=== PATIENT | female | born 1940 | race Caucasian/White ===

== ENCOUNTER → 2017-03-28 | Outpatient (CLI) | payer OTHER, BC ==
[2017-03-28 18:20] LABS: THYROID STIMULATING HORMONE 0.29 uIu/ml (0.300-4.500)
--- NOTE | 2017-04-07 13:34 | CODING QUERY MEDICAL NECESSITY ---
CQSUPPORTING DIAGNOSIS NEEDED A supporting diagnosis is required for the test/procedure performed on this patient in order for us to be reimbursed by the patient's insurance. Please provide a supporting diagnosis for the following test/procedure listed below next to the test name along with your signature. *If there is no additional diagnosis for this patient that would support the following test/procedure please document that below next to the test/procedure. Test(s)/Procedure(s) that require a supporting diagnosis: DIANA 03/28/17 BLOOD GLUCOSE TEST Provider Signature: Date: Thank you Ryann Garza Health Information Management Once completed, please kindly fax back to [phone] For questions please call [phone]
== END | disposition home or self-care (01) ==
LOC: C.LABMFLN 12:52
PROVIDERS: ATTEND Family Medicine
DX: F41.8 Other specified anxiety disorders (principal); E03.9 Hypothyroidism, unspecified; Z13.1 Encounter for screening for diabetes mellitus

== ENCOUNTER → 2017-05-22 | Outpatient (CLI) | payer OTHER, BC | END | disposition home or self-care (01) | LOC: C.LABMFLN 13:32 | PROVIDERS: ATTEND Family Medicine | DX: E03.9 Hypothyroidism, unspecified (principal) ==

== ENCOUNTER → 2017-07-14 | Outpatient (CLI) | payer OTHER, BC | END | disposition home or self-care (01) | LOC: C.LABMFLN 14:23 | PROVIDERS: ATTEND Family Medicine | DX: E03.9 Hypothyroidism, unspecified (principal) ==

== ENCOUNTER → 2018-01-06 | Outpatient (CLI) | payer OTHER, BC | END | disposition home or self-care (01) | LOC: C.LABMFLN 12:55 | PROVIDERS: ATTEND Family Medicine | DX: F41.8 Other specified anxiety disorders (principal); E03.9 Hypothyroidism, unspecified; Z13.220 Encounter for screening for lipoid disorders; I71.4 Abdominal aortic aneurysm, without rupture; Z13.1 Encounter for screening for diabetes mellitus; R10.13 Epigastric pain ==

== ENCOUNTER 2023-04-30 16:42 | Inpatient (IN) ==
--- NOTE | 2023-04-30 16:51 | ED Triage Note ---
Date of Service April 30, 2023 History of Present Illness This patient was briefly evaluated while in triage. An abbreviated physical exam was performed. Here with son. This patient is a 83-year-old Female who presents to the ED for evaluation of "wanting to " lately and not taking prescribed medications. Started beginning of February. First week of february stopped her regular psych rehab, [facility]utheran, and bible study. Ritalin was changed in the recent past among other meds. Son called her doctor. Physical Exam GENERAL: 83 year old female. In no acute distress. SKIN: No lesions or rashes. HEART: Regular rate and rhythm. LUNGS: Clear to auscultation. NEURO: Alert and oriented. No deficits. MUSCULOSKELETAL: No deformities to inspection of the extremities. PSYCH: Patient is pleasant and answers all questions appropriately. Initial orders for labs and / or imaging were placed and patient was placed in the waiting area until a bed is available. Please see further documentation for the full ED course.
[2023-04-30 17:35] LABS: Eosinophils # (auto) 0.14 K/uL (0.00-0.50); Eosinophils % (auto) 1.4 %; Hematocrit (blood only) 44.2 % (37.0-47.0); Hemoglobin 14.9 g/dl (12.0-16.0); Immature Granulocytes # (auto) 0.02 K/uL (0.01-0.20); Immature Granulocytes % (auto) 0.2 %; Lymphocytes # (auto) 1.49 K/uL (1.20-3.40); Lymphocytes % (auto) 15.3 %; Mean Corpuscular Hemoglobin 31.2 pg (25.0-34.0); Mean Corpuscular Hgb Conc 33.7 g/dL (32.0-36.0); Mean Corpuscular Volume 92.7 fL (80.0-100.0); Mean Platelet Volume 9.6 fL (9.4-12.4); Monocytes # (auto) 0.88 K/uL (0.11-0.59); Neutrophils # (auto) 7.12 K/uL (1.40-6.50); Neutrophils % (auto) 73.1 %; Platelet Count 352 K/uL (130-400); RDW Coefficient of Variation 11.9 % (11.5-14.5); RDW Standard Deviation 40.9 fL (36.4-46.3); Red Blood Count 4.77 M/uL (4.20-5.40); White Blood Count 9.75 K/ul (4.8-10.8)
[2023-04-30 17:54] LABS: Alanine Aminotransferase 12 U/L (7-52); Albumin Globulin Ratio 1.3 (0.9-2); Albumin Level 4.2 gm/dl (3.4-5.0); Alkaline Phosphatase 50 U/L (34-104); Anion Gap 7 (3-11); Aspartate Aminotransferase 17 U/L (13-39); Bilirubin,Total 0.6 mg/dl (0.2-1.0); Blood Urea Nitrogen 12 mg/dl (6-23); Carbon Dioxide 28 mmol/L (21-32); Chloride 101 mmol/L (98-107); Est GFR (African American) 72.9 ml/min; Est GFR (Non-African American) 62.9 ml/min; Globulin 3.2 gm/dl (2.5-4.0); Glucose 88 mg/dl (70-99(Fasting)); Sodium 136 mmol/L (136-145); Total Protein 7.4 gm/dl (6.0-8.3)
[2023-04-30 18:04] LABS: Acetaminophen < 3 ug/ml (10-30); Salicylate < 3.0 mg/dl (3.0-30)
--- NOTE | 2023-04-30 18:29 | XRay Report ---
XR chest 1V portable HISTORY: Altered mental status. COMPARISON: None. FINDINGS: No pneumothorax. No pleural effusions. Prior cholecystectomy. The heart is normal in size. No focal lung consolidations to suggest a pneumonia. No evidence for pulmonary edema. There are calci fications within the aortic knob. IMPRESSION: No acute process. ACT 112: Negative or not required by law. Electronically signed by: Giovanni Dickey M.D. 04/30/2023 6:27 PM
--- NOTE | 2023-04-30 18:37 | CT Scan Report ---
HEAD CT NONCONTRAST CT DOSE: 805.32 mGy.cm HISTORY: Altered mental status. TECHNIQUE: Multiaxial CT images of the head were performed without the use of intravenous contrast. A utomated exposure control was utilized for this study. A dose lowering technique was utilized adheri ng to the principles of ALARA. Comparison: None. Findings: The paranasal sinuses and mastoid air cells are clear. The calvarium and skull base are int act. The ventricles and sulci are within normal limits. There is no mass, hematoma, midline shift, or acute infarct. Impression: No acute intracranial abnormality. ACT 112: Negative or not required by law. Electronically signed by: Giovanni Dickey M.D. 04/30/2023 6:35 PM
--- NOTE | 2023-04-30 19:31 | Emergency Department Note ---
History of Present Illness General Chief complaint: Mental Health Evaluation Stated complaint: REF BY FOR PHYCHIATRIC TREATMENT Time Seen by Provider: 04/30/23 16:57 History of Present Illness Provider complaint: Mental health evaluation 83-year-old female presents emergency department for mental health evaluation. Patient reports that she had an affair multiple years ago and she feels very guilty about it and she wants to kill herself now. Patient reports that she has not been taking her Effexor for the last 2 and half weeks. Patient denies any access to any firearms. She denies any drugs or alcohol. She states she feels very guilty about having this affair. She reports decreased energy decreased appetite and difficulties concentrating. She reports no difficulty sleeping. Patient states that her psychiatrist wanted her evaluated. Home Medications Medication Instructions Recorded Confirmed Type melatonin 3 mg tablet 6 mg PO HS PRN sleep #60 tabs 09/09/19 04/30/23 Rx olanzapine 15 mg tablet 7.5 mg PO QPM #15 tabs 10/25/20 04/30/23 Rx levothyroxine 88 mcg tablet 88 mcg PO DAILY #90 tabs 10/07/22 04/30/23 Rx methylphenidate HCl 10 mg tablet See Rx Instructions PO DAILY 02/25/23 04/30/23 History (Ritalin) mirtazapine 15 mg tablet (Remeron) 15 mg PO HS 02/25/23 04/30/23 History venlafaxine 225 mg tablet,extended 225 mg PO DAILY 05/01/23 05/01/23 History release 24 hr Allergies Allergy/AdvReac Type Severity Reaction Status Date / Time No Known Drug Allergies Allergy Unknown Verified 04/30/23 17:28 alendronate sodium AdvReac Mild myalgia Verified 04/30/23 17:29 [From Fosamax] Past Med/Surg History Medical History Asymptomatic age-related postmenopausal state Asymptomatic late onset menopause Dyslipidemia Hypothyroidism Insomnia Major depressive disorder, recurrent severe without psychotic features Medicare annual wellness visit, subsequent Osteoporosis Prediabetes Surgical History History of cholecystectomy History of hysterectomy Family History Brother Asthma Father Coronary heart disease Diabetes Heart disease Hypertension Rheumatoid arthritis Mother Coronary heart disease Heart disease Hypertension Sister Osteoporosis Denies family history of Sudden SIDS (sudden syndrome) Ovarian cancer Prostate cancer Deep vein thrombosis Dyslipidemia Cerebral aneurysm Alzheimer disease Bipolar disorder Clotting disorder Crohn's disease Dementia Depression Kidney disease Myocardial infarction Osteoarthritis Breast cancer Schizophrenia Congenital kidney disease Gestational diabetes Lung cancer COPD (chronic obstructive pulmonary disease) Colorectal cancer Pulmonary embolism Lung disease Ulcerative colitis Colonic polyp Stroke Cystic kidney disease Social History Smoking Status: Never smoker Do You Dip or Chew Tobacco: No; Hx Alcohol Use: No Hx Substance Use: No Preferred Language: Danish Communication Ability: Effective Visual Impairment: No Limitations Hearing Ability: Normal Pipe Inspector Required: No Beliefs That Will Affect Care: None marital status: / Current Living Situation: Alone current occupational status: retired Feels Safe at Home: Yes Childhood Exposure to Second-Hand Smoke: Yes caffeine: No during the past year weight has: decreased > 10 lbs Dental Care, Regularly: No Physical Activity Frequency: Does not Exercise Seatbelt Use: always Sunscreen Use: No Gender Identity: Female Assistive Devices: Glasses Physical Exam Vital Signs Vital Signs - 24 hr 04/30/23 16:50 04/30/23 22:03 Temperature 36.7 C Temperature Source Temporal Artery Scan Pulse Rate 94 H Pulse Rate [Finger] 75 Respiratory Rate 16 16 Respiratory Effort / Characteristics Non-Labored Non-Labored Spontaneous Respiratory Depth Normal Normal Blood Pressure 104/72 Blood Pressure [Right Arm] 125/77 Blood Pressure Mean 82 Blood Pressure Mean [Right Arm] 93 Pulse Oximetry 94 95 Oxygen Delivery Method Room Air Room Air Sepsis Recent Fever Within 48 Hours No Sepsis New/Unexplained Change in Mental Status No Sepsis Action Taken by Nursing No Action Required Physical Exam GENERAL: oriented to person, place, and time. appears well-developed and well- nourished. HENT: Exam performed. - Head: Normocephalic and atraumatic. EYES: Conjunctivae and EOM are normal. Right eye exhibits no discharge. Left eye exhibits no discharge. No scleral icterus. NECK: Normal range of motion. Neck supple. No JVD present. CV: Normal rate, regular rhythm, normal heart sounds and intact distal pulses. There is no peripheral edema. Palpable radial pulses bue. PULM/CHEST: Effort normal and breath sounds normal. No respiratory distress. No stridor. no wheezes. no rales. ABD: The abdomen is soft. There is no tenderness. NEURO: Motor and sensation grossly intact. SKIN: Skin is warm and dry. He is not diaphoretic. PSYCH: Patient appears sad and depressed. Course Course 1656: The patient was evaluated in room A8. A complete history and physical exam was performed 1935: Vital signs stable. Labs within normal limits. Imaging within normal limits. Patient medically cleared. Awaiting psychiatric evaluation and possible placement. Patient placed in observation at this time. 2241: Patient excepted to 3 S. Administered Medications Levothyroxine Sodium (Levothyroxine Sodium 88 Mcg Tablet) 88 mcg PO DAILY [facility] Stop: 05/31/23 09:19 Last Admin: 05/01/23 10:41 Dose: 88 mcg Documented By: BNT Melatonin (Melatonin 3 Mg Tab) 6 mg PO HS PRN PRN Reason: Sleep Stop: 05/30/23 23:52 Last Admin: 05/01/23 21:48 Dose: 6 mg Documented By: Admin: 05/01/23 00:15 Dose: 6 mg Documented By: DMT Methylphenidate HCl (Methylphenidate Hcl 10 Mg Tablet) 10 mg PO BID@0900,1400 S Stop: 05/15/23 09:29 Last Admin: 05/01/23 14:08 Dose: 10 mg Documented By: Admin: 05/01/23 10:41 Dose: 10 mg Documented By: BNT Mirtazapine (Mirtazapine Tab 15 Mg Tab) 30 mg PO HS TU Stop: 05/31/23 21:59 Last Admin: 05/01/23 21:49 Dose: 30 mg Documented By: CLD Olanzapine (Olanzapine 2.5 Mg Tab) 7.5 mg PO HS TU Stop: 05/30/23 23:54 Last Admin: 05/01/23 21:51 Dose: 7.5 mg Documented By: Admin: 05/01/23 00:15 Dose: 7.5 mg Documented By: DMT Venlafaxine HCl (Venlafaxine Hcl Xr 150 Mg Capxr) 150 mg PO QAM TU Stop: 06/01/23 08:59 Last Admin: 05/01/23 13:15 Dose: 150 mg Documented By: TLF Discontinued Medications Mirtazapine (Mirtazapine Tab 15 Mg Tab) 15 mg PO HS TU Stop: 05/30/23 23:54 Last Admin: 05/01/23 00:15 Dose: 15 mg Documented By: DMT Medical Decision Making Laboratory Data Attestation: I reviewed the patient's lab results. 04/30/23 17:08 04/30/23 17:08 Lab Results 04/30/23 04/30/23 04/30/23 Range/Units 17:08 17:08 17:08 WBC 9.75 (4.8-10.8) K/ul RBC 4.77 (4.20-5.40) M/uL Hgb 14.9 (12.0-16.0) g/dl Hct 44.2 (37.0-47.0) % MCV 92.7 (80.0-100.0) fL MCH 31.2 (25.0-34.0) pg MCHC 33.7 (32.0-36.0) g/dL RDW Std Deviation 40.9 (36.4-46.3) fL RDW Coeff of Belinda 11.9 (11.5-14.5) % Plt Count 352 (130-400) K/uL MPV 9.6 (9.4-12.4) fL Immature Gran % (Auto) 0.2 % Neut % (Auto) 73.1 % Lymph % (Auto) 15.3 % [place] % (Auto) 9.0 % Eos % (Auto) 1.4 % Baso % (Auto) 1.0 % Neut # (Auto) 7.12 H (1.40-6.50) K/uL Lymph # (Auto) 1.49 (1.20-3.40) K/uL [place] # (Auto) 0.88 H (0.11-0.59) K/uL Eos # (Auto) 0.14 (0.00-0.50) K/uL Baso # (Auto) 0.10 (0.00-0.20) K/uL Immature Gran # (Auto) 0.02 (0.01-0.20) K/uL Sodium 136 (136-145) mmol/L Potassium 4.0 (3.5-5.1) mmol/L Chloride 101 (98-107) mmol/L Carbon Dioxide 28 (21-32) mmol/L Anion Gap 7 (3-11) BUN 12 (6-23) mg/dl Creatinine 0.86 (0.6-1.2) mg/dl Est Cr Clr Drug Dosing Not Reportable Est GFR ( Amer) 72.9 ml/min Est GFR (Non-Af Amer) 62.9 ml/min BUN/Creatinine Ratio 14.0 (10-20) Glucose 88 (70-99(Fasting)) mg/dl Calcium 9.0 (8.6-10.3) mg/dl Total Bilirubin 0.6 (0.2-1.0) mg/dl AST 17 (13-39) U/L ALT 12 (7-52) U/L Alkaline Phosphatase 50 (34-104) U/L Total Protein 7.4 (6.0-8.3) gm/dl Albumin 4.2 (3.4-5.0) gm/dl Globulin 3.2 (2.5-4.0) gm/dl Albumin/Globulin Ratio 1.3 (0.9-2) TSH 0.953 (0.300-4.500) uIu/ml Salicylates (3.0-30) mg/dl Acetaminophen (10-30) ug/ml Ethyl Alcohol mg/dL (<10.0) mg/dl 04/30/23 04/30/23 Range/Units 17:08 17:08 WBC (4.8-10.8) K/ul RBC (4.20-5.40) M/uL Hgb (12.0-16.0) g/dl Hct (37.0-47.0) % MCV (80.0-100.0) fL MCH (25.0-34.0) pg MCHC (32.0-36.0) g/dL RDW Std Deviation (36.4-46.3) fL RDW Coeff of Belinda (11.5-14.5) % Plt Count (130-400) K/uL MPV (9.4-12.4) fL Immature Gran % (Auto) % Neut % (Auto) % Lymph % (Auto) % [place] % (Auto) % Eos % (Auto) % Baso % (Auto) % Neut # (Auto) (1.40-6.50) K/uL Lymph # (Auto) (1.20-3.40) K/uL [place] # (Auto) (0.11-0.59) K/uL Eos # (Auto) (0.00-0.50) K/uL Baso # (Auto) (0.00-0.20) K/uL Immature Gran # (Auto) (0.01-0.20) K/uL Sodium (136-145) mmol/L Potassium (3.5-5.1) mmol/L Chloride (98-107) mmol/L Carbon Dioxide (21-32) mmol/L Anion Gap (3-11) BUN (6-23) mg/dl Creatinine (0.6-1.2) mg/dl Est Cr Clr Drug Dosing Est GFR ( Amer) ml/min Est GFR (Non-Af Amer) ml/min BUN/Creatinine Ratio (10-20) Glucose (70-99(Fasting)) mg/dl Calcium (8.6-10.3) mg/dl Total Bilirubin (0.2-1.0) mg/dl AST (13-39) U/L ALT (7-52) U/L Alkaline Phosphatase (34-104) U/L Total Protein (6.0-8.3) gm/dl Albumin (3.4-5.0) gm/dl Globulin (2.5-4.0) gm/dl Albumin/Globulin Ratio (0.9-2) TSH (0.300-4.500) uIu/ml Salicylates < 3.0 L (3.0-30) mg/dl Acetaminophen < 3 L (10-30) ug/ml Ethyl Alcohol mg/dL < 10.0 (<10.0) mg/dl Imaging Data Attestation: I personally reviewed and interpreted this imaging study as follows: My Impression: Chest x-ray negative. Airway clear. No pneumothorax. No consolidation. No cardiomegaly or cephalization.. No free air under the diaphragm. No fractures of the skeletal structures. Radiologist's Impression: Chest X-Ray 04/30/23 18:00 XR chest 1V portable HISTORY: Altered mental status. COMPARISON: None. FINDINGS: No pneumothorax. No pleural effusions. Prior cholecystectomy. The heart is normal in size. No focal lung consolidations to suggest a pneumonia. No evidence for pulmonary edema. There are calcifications within the aortic knob. IMPRESSION: No acute process. ACT 112: Negative or not required by law. Electronically signed by: Giovanni Dickey M.D. 04/30/2023 6:[address] 04/30/23 18:[address] DOSE: 805.32 mGy.cm HISTORY: Altered mental status. TECHNIQUE: Multiaxial CT images of the head were performed without the use of intravenous contrast. Automated exposure control was utilized for this study. A dose lowering technique was utilized adhering to the principles of ALARA. Comparison: None. Findings: The paranasal sinuses and mastoid air cells are clear. The calvarium and skull base are intact. The ventricles and sulci are within normal limits. There is no mass, hematoma, midline shift, or acute infarct. Impression: No acute intracranial abnormality. ACT 112: Negative or not required by law. Electronically signed by: Giovanni Dickey M.D. 04/30/2023 6:35 PM ECG Data Attestation: I personally reviewed and interpreted this ECG as follows: Rate (beats per minute): 76 Rhythm: + sinus with SA ECG Intervals/blocks: + Normal [place] and + Normal QT-c ECG ST segments: + Normal ST segments Additional Comments: QRS 72 MDM Narrative 1657: The patient was evaluated in room A8. A complete history and physical exam was performed 1936: Vital signs stable. Labs within normal limits. Imaging within normal limits. Patient medically cleared. Awaiting psychiatric evaluation and possible placement. Patient placed in observation at this time. 2241: Patient excepted to 3 S. Observation note Indication: Psych eval/placement Patient, with depression, dyslipidemia was first seen at 1657 hrs and the observation time began at 1936 hrs and was necessary in order to have psych evaluation completed . Upon re-evaluation, 3 hours and 6 minutes of observation revealed that the patient should be admitted. Disposition date and time 2241April 30, 2023. Impression & Plan Depression with suicidal ideation Discharge Plan Visit Data Chief Complaint: Mental Health Evaluation Stated Complaint: REF BY FOR PHYCHIATRIC TREATMENT ED Provider: John Garcia Discharge Problem: Depression with suicidal ideation Patient Disposition: Admitted As Inpatient Discharge Instructions Interventions: ED Discharge Assessment Last Done: 04/30/23 23:23
[2023-04-30 21:04] LABS: Appearance Urine Clear (Clear); Bacteria Urine Automated Negative (Negative); Bilirubin Urine Negative (Negative); Blood Urine Negative (Negative); Cast Urine Automated 0 /lpf (0-5); Color Urine Yellow; Epithelial Cell Urine Auto >30 /lpf (0-5); Glucose Urine UA Negative (Negative); Ketones Urine Negative (Negative); Leukocyte Esterase Urine 2+ (Negative); Nitrite Urine Negative (Negative); Protein Urine Negative (Negative); RBC Urine Automated 0-4 /hpf (0-4); Specific Gravity Urine 1.006 (1.000-1.030); Urobilinogen Urine Negative (Negative); pH Urine 6.5 (4.5-7.5)
[2023-04-30 21:23] LABS: Amphetamines+Metham, Urine Neg (Neg); Barbiturates, Urine Neg (Neg); Benzodiazepine, Urine Neg (Neg); Cocaine, Urine Neg (Neg); MDMA (Ecstacy), Urine Neg (Neg); Methadone, Urine Neg (Neg); Opiate, Urine Neg (Neg); Phencyclidine, Urine Neg (Neg)
[2023-04-30] MEDS ORDERED: MIRTAZAPINE TAB 15 MG TAB PO SCH (23:55)
[2023-05-01] MEDS: OLANZAPINE 2.5 MG TAB PO SCH ×2 (00:15→21:51)
[2023-05-01] MEDS: MELATONIN 3 MG TAB PO PRN ×2 (00:15→21:48)
[2023-05-01] MEDS ORDERED: ALUMINUM/MAGNESIUM SUSP 30 ML UDC PO PRN (00:53)
[2023-05-01] MEDS ORDERED: MAGNESIUM HYDROXIDE SUSP 30 ML UDC PO PRN (00:53)
[2023-05-01] MEDS ORDERED: BISMUTH SUBSALICYLATE LIQD 236 ML PO PRN (00:53)
[2023-05-01] MEDS ORDERED: hydrOXYzine HCl 25 MG TAB PO PRN ×2 (00:53)
[2023-05-01] MEDS ORDERED: ACETAMINOPHEN 325 MG TAB PO PRN (00:53)
[2023-05-01] MEDS ORDERED: SODIUM CHLORIDE 0.65% NA SOLN 45 ML (OCEAN) PRN (00:53)
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
[2023-05-01] MEDS: METHYLPHENIDATE HCL 10 MG TABLET PO SCH ×2 (10:41→14:08)
[2023-05-01] MEDS: LEVOTHYROXINE SODIUM 88 MCG TABLET PO SCH (10:41)
[2023-05-01] MEDS: VENLAFAXINE HCL XR 150 MG CAPXR PO SCH (13:15)
--- NOTE | 2023-05-01 16:43 | Electrocardiogram Report ---
Test Reason : Blood Pressure : / mmHG Vent. Rate : 076 BPM Atrial Rate : 076 BPM P-R Int : 190 ms QRS Dur : 072 ms QT Int : 354 ms P-R-T Axes : 051 013 075 degrees QTc Int : 398 ms Sinus rhythm with Premature atrial complexes Otherwise normal ECG No previous ECGs available Confirmed by Hayden Buchanan ([id number]) on 05/01/2023 4:42:51 PM Referred By: Eduardo Ramirez Confirmed By:Hayden Buchanan
[2023-05-01] MEDS: MIRTAZAPINE TAB 15 MG TAB PO SCH (21:49)
[2023-05-02] MEDS: LEVOTHYROXINE SODIUM 88 MCG TABLET PO SCH (08:32)
[2023-05-02] MEDS: VENLAFAXINE HCL XR 150 MG CAPXR PO SCH (08:51)
[2023-05-02] MEDS: METHYLPHENIDATE HCL 10 MG TABLET PO SCH ×2 (08:52→13:28)
--- NOTE | 2023-05-02 09:09 | Psychiatric Progress Note ---
Date of Service May 02, 2023 Impression / Recommendations Impression Trista is a 83 year old with a history of MDD, JED, panic disorder and insomnia who was admitted for worsening depression, self-guilt and SI. Diagnostically consistent with major depressive disorder and possible contribution from age related changes or side effects from olanzapine (uses due to insomnia but may be having some carry over excessive sedation effects). She is deemed in need of psychiatric hospitalization for diagnostic clarification, safety and stabilization, medication management and development of further coping skills. MNPR due insomnia, age and COVID prevalence in community 05/02/2023: Still with severe depression and anxiety but trying to engage in groups despite her fatigue and low motivation. Some improvement in stomach symptoms with increase of mirtazapine but still struggling a bit with sleep. Discussed with her outpatient psychiatrist Dr. Moura. Overall, I spent a total of 40 minutes with this case including review of chart records, direct evaluation of the patient at bedside, counseling the patient, discussion of the patient with the interdisciplinary treatment team, discussion with her outpatient psychiatrist, and documentation in the electronic health record. (1) MDD (major depressive disorder), recurrent episode, severe: (2) JED (generalized anxiety disorder): (3) Insomnia: (4) Depression with suicidal ideation: Plan 05/02/2023: Continue with current medications and treatment plan. 05/01/2023:The patient was admitted to the [facility] ([facility]) on q15 min checks (behavioral with suicide precautions) for safety. The patient will participate in group, recreational, and milieu therapies and will be offered additional individual and family sessions as clinically appropriate. -Increase mirtazapine to 30mg HS -Continue olanzapine 7.5mg HS (possibly consider dose reduction), methylphenidate 10mg 0900 and 1400, effexor XR 150mg qd Inventory Assets Strengths: supportive relationships, willing to get treatment Needs: safety and stabilization, medication adjustment, additional coping skills, increased outpatient services Suicide Risk Level Suicide Risk Level: High-Moderate (q15 min suicide checks) (severe depression with SI and self-guilt prior to admission but feels safe in the hospital, able to safety contract and agrees to let nursing/staff know should they develop plan, intent or feel unable to remain safe.) Suicide Risk Level Comments: Risk Factors Assessment Male: No : Yes Do You Have Access To A Gun?: No Health Problems: No Mental Health Diagnoses: Yes Substance Use Disorders: No Previous Attempt: Yes Family History of Suicide: No Previous Psychiatric Hospitalization: Yes Protective Factors Assessment Employed: No Stable Relationships: Yes Supportive Family: Yes Good Rapport with Provider: Yes Interval History Identifying Information TRISTA CANADA is a 83-year-old woman who currently lives in [place], has a history of MDD, JED, panic disorder and insomnia, and was admitted on 04/30/23 22:54 on a 201 voluntary commitment for worsening depression and SI. Chief Complaint "I'm anxious". Review of Systems Sleep Information Total Hours of Sleep: 6.5 Meal Information Percent Meal Consumed - Breakfast: 75 Percent Meal Consumed - Lunch: 75 Percent Meal Consumed - Dinner: 100 Subjective Subjective Patient was seen & assessed and interval progress reviewed with treatment team nursing and social work. Very anxious. Attending groups. Slept ok overnight but not as well as the previous night. Engaged in groups today, including more active groups. Feels she gets tired more easily but working to push herself to do the groups. Met with the rail maintenance worker. Thinks her stomach is a "little better" today after higher dose of mirtazapine. Physical Exam Psychiatric Orientation: alert and oriented x 3 Apperance: appropriately dressed and appropriately groomed Eye Contact: good eye contact Motor Behavior: no abnormal motor movements Speech: normal rate/rhythm/volume of speech Affect: + depressed affect, + anxious affect and + constricted affect Mood: + depressed mood and + anxious mood Thought Process: goal directed thought process Thought Content: reality based without delusions Suicidal Thoughts: denies suicidal plan and denies suicidal intent; + reports suicidal thoughts (intermittent thoughts) Homicidal Thoughts: denies homicidal thoughts Hallucinations: no auditory hallucinations and no visual hallucinations Cognition: recent memory grossly intact, remote memory grossly intact, attention grossly intact and language grossly intact Estimated Intelligence: consistent with education level Insight: + limited insight Judgment: + limited judgement Vital Signs (Past 24 Hours) Last Vital Signs Temp 36.6 C 05/02/23 06:49 Pulse 121 H 05/02/23 06:50 Resp 16 05/02/23 06:49 BP 118/71 05/02/23 06:50 Pulse Ox 97 05/01/23 00:11 O2 Del Method Room Air 05/01/23 00:11 Results & Data ([facility]) Current Inpatient Medications Current Inpatient Medications: Current Inpatient Medications Acetaminophen (Acetaminophen 325 Mg Tab) 650 mg PO Q4H PRN PRN Reason: Headache or Minor Fever Stop: 05/31/23 00:52 Al Hydrox/Mg Hydrox/Simethicone (Aluminum/Magnesium Susp 30 Ml Udc) 30 ml PO Q4H PRN PRN Reason: GI Upset Stop: 05/31/23 00:52 Bismuth Subsalicylate (Bismuth Subsalicylate Liqd 236 Ml) 15 ml PO PRN PRN PRN Reason: Loose Stool Stop: 05/31/23 00:52 Hydroxyzine HCl (Hydroxyzine Hcl 25 Mg Tab) 50 mg PO HSZ PRN PRN Reason: Insomnia Stop: 05/31/23 00:52 Hydroxyzine HCl (Hydroxyzine Hcl 25 Mg Tab) 25 mg PO Q4H PRN PRN Reason: Anxiety Stop: 05/31/23 00:52 Levothyroxine Sodium (Levothyroxine Sodium 88 Mcg Tablet) 88 mcg PO DAILY TU Stop: 05/31/23 09:19 Last Admin: 05/02/23 08:32 Dose: 88 mcg Magnesium Hydroxide (Magnesium Hydroxide Susp 30 Ml Udc) 30 ml PO DAILY PRN PRN Reason: Constipation Stop: 05/31/23 00:52 Melatonin (Melatonin 3 Mg Tab) 6 mg PO HS PRN PRN Reason: Sleep Stop: 05/30/23 23:52 Last Admin: 05/01/23 21:48 Dose: 6 mg Methylphenidate HCl (Methylphenidate Hcl 10 Mg Tablet) 10 mg PO BID@0900,1400 TU Stop: 05/15/23 09:29 Last Admin: 05/02/23 08:52 Dose: 10 mg Mirtazapine (Mirtazapine Tab 15 Mg Tab) 30 mg PO HS TU Stop: 05/31/23 21:59 Last Admin: 05/01/23 21:49 Dose: 30 mg Olanzapine (Olanzapine 2.5 Mg Tab) 7.5 mg PO HS TU Stop: 05/30/23 23:54 Last Admin: 05/01/23 21:51 Dose: 7.5 mg Sodium Chloride (Sodium Chloride 0.65% Na Soln 45 Ml ([place])) 1 - 2 sprays NA PRN PRN PRN Reason: Nasal Dryness/Congestion Stop: 05/31/23 00:52 Venlafaxine HCl (Venlafaxine Hcl Xr 150 Mg Capxr) 150 mg PO QAM TU Stop: 06/01/23 08:59 Last Admin: 05/02/23 08:51 Dose: 150 mg Mental Health & Subst Abuse Tx Psychiatrist Name of Psychiatrist: [facility]- Dr. Quintanilla Psychiatrist's Date Of Appointment With Psychiatric Provider: 05/14/23 Time of Appointment with Psychiatrist: 4:20 Psychiatric Appointment Comment: Via Zoom Post Discharge Appointments Primary Care Physician Name Of Family Doctor/PCP: HOLLI Primary Care Provider Appointment Comment: [address] [place] [address] Contact Information Discharge Discharge Address: [address] [place] [address]
[2023-05-02] MEDS: MIRTAZAPINE TAB 15 MG TAB PO SCH (21:36)
[2023-05-02] MEDS: OLANZAPINE 2.5 MG TAB PO SCH (21:37)
[2023-05-02] MEDS: MELATONIN 3 MG TAB PO PRN (22:10)
[2023-05-03] MEDS: LEVOTHYROXINE SODIUM 88 MCG TABLET PO SCH (08:02)
[2023-05-03] MEDS: METHYLPHENIDATE HCL 10 MG TABLET PO SCH ×2 (09:39→13:58)
[2023-05-03] MEDS: VENLAFAXINE HCL XR 150 MG CAPXR PO SCH (09:39)
--- NOTE | 2023-05-03 10:58 | Psychiatric Progress Note ---
Date of Service May 03, 2023 Impression / Recommendations Impression Trista is a 83 year old with a history of MDD, JED, panic disorder and insomnia who was admitted for worsening depression, self-guilt and SI. Diagnostically consistent with major depressive disorder and possible contribution from age related changes or side effects from olanzapine (uses due to insomnia but may be having some carry over excessive sedation effects). She is deemed in need of psychiatric hospitalization for diagnostic clarification, safety and stabilization, medication management and development of further coping skills. MNPR due insomnia, age and COVID prevalence in community 05/03/2023: Remains strongly preoccupied with feelings of being a sinner and self-reproach for an extramarital affair 10 yr ago (for which she says her forgave her and for which she believes God has forgiven her, but for which she can't forgive herself). Her thought and speech return to this topic over and over. Thinks appetite has improved a bit. Tolerating medication changes including increase of mirtazapine. Discussed possibility of increasing venlafaxine XR (which pt says her outpatient psychiatrist has recommended more than once). I spent over 70 minutes [id number] with pt (in addition to further time reviewing with staff and reading records) reviewing her history, including educational and occupational, as well as psychiatric history and response to treatment. I am not inclined to change her diagnosis from that of recurrent major depression and generalized anxiety disorder, and see no significant memory issues. 05/02/2023: Still with severe depression and anxiety but trying to engage in groups despite her fatigue and low motivation. Some improvement in stomach symptoms with increase of mirtazapine but still struggling a bit with sleep. Discussed with her outpatient psychiatrist Dr. Moura. Overall, I spent a total of 40 minutes with this case including review of chart records, direct evaluation of the patient at bedside, counseling the patient, discussion of the patient with the interdisciplinary treatment team, discussion with her outpatient psychiatrist, and documentation in the electronic health record. (1) Major depressive disorder, recurrent severe without psychotic features: (2) JED (generalized anxiety disorder): (3) Insomnia: Plan 05/03/2023: * increase venlafaxine XR to 187.5 mg daily; anticipate further titration to 225 mg daily if tolerated * continue home medication methylphenidate 10 mg BID * continue mirtazapine 30 mg QHS - increased 05/02/2023 * continue home medication olanzapine 7.5 mg QHS 05/02/2023: Continue with current medications and treatment plan. 05/01/2023:The patient was admitted to the [facility] ([facility]) on q15 min checks (behavioral with suicide precautions) for safety. The patient will participate in group, recreational, and milieu therapies and will be offered additional individual and family sessions as clinically appropriate. -Increase mirtazapine to 30mg HS -Continue olanzapine 7.5mg HS (possibly consider dose reduction), methylphenidate 10mg 0900 and 1400, effexor XR 150mg qd Inventory Assets Strengths: supportive relationships, willing to get treatment Needs: safety and stabilization, medication adjustment, additional coping skills, increased outpatient services Suicide Risk Level Suicide Risk Level: Moderate (q15 min suicide checks) (severe depression with SI and self-guilt prior to admission but feels safe in the hospital, able to safety contract and agrees to let nursing/staff know should they develop plan, intent or feel unable to remain safe.) Suicide Risk Level Comments: Risk Factors Assessment Male: No : Yes Do You Have Access To A Gun?: No Health Problems: No Mental Health Diagnoses: Yes Substance Use Disorders: No Previous Attempt: Yes Family History of Suicide: No Previous Psychiatric Hospitalization: Yes Protective Factors Assessment Employed: No Stable Relationships: Yes Supportive Family: Yes Good Rapport with Provider: Yes Interval History Identifying Information TRISTA CANADA is a 83-year-old woman who currently lives in [place], has a history of MDD, JED, panic disorder and insomnia, and was admitted on 04/30/23 22:54 on a 201 voluntary commitment for worsening depression and SI. Chief Complaint "I made such a mistake". Review of Systems Sleep Information Total Hours of Sleep: 7.25 Meal Information Percent Meal Consumed - Breakfast: 75 Percent Meal Consumed - Lunch: 100 Percent Meal Consumed - Dinner: 100 Subjective Subjective Patient was seen & assessed and interval progress reviewed in a multidisciplinary team meeting with nursing and social work. For details, see the "Impression" section. Physical Exam Psychiatric Orientation: alert and oriented x 3 Apperance: appropriately dressed and appropriately groomed Eye Contact: good eye contact Motor Behavior: no abnormal motor movements Speech: normal rate/rhythm/volume of speech Affect: + anxious affect and + constricted affect Mood: + anxious mood and + dysphoric mood Thought Process: goal directed thought process Thought Content: + preoccupation (with affair 10 years ago) and reality based without delusions Suicidal Thoughts: denies suicidal plan and denies suicidal intent; + reports suicidal thoughts (intermittent thoughts) Homicidal Thoughts: denies homicidal thoughts Hallucinations: no auditory hallucinations and no visual hallucinations Cognition: recent memory grossly intact, remote memory grossly intact, attention grossly intact and language grossly intact Estimated Intelligence: consistent with education level Insight: + limited insight Judgment: + limited judgement Vital Signs (Past 24 Hours) Last Vital Signs Temp 36.6 C 05/03/23 06:43 Pulse 106 H 05/03/23 06:44 Resp 16 05/03/23 06:43 BP 89/56 L 05/03/23 06:44 Pulse Ox 97 05/01/23 00:11 O2 Del Method Room Air 05/01/23 00:11 Results & Data ([facility]) Current Inpatient Medications Current Inpatient Medications: Current Inpatient Medications Acetaminophen (Acetaminophen 325 Mg Tab) 650 mg PO Q4H PRN PRN Reason: Headache or Minor Fever Stop: 05/31/23 00:52 Al Hydrox/Mg Hydrox/Simethicone (Aluminum/Magnesium Susp 30 Ml Udc) 30 ml PO Q4H PRN PRN Reason: GI Upset Stop: 05/31/23 00:52 Bismuth Subsalicylate (Bismuth Subsalicylate Liqd 236 Ml) 15 ml PO PRN PRN PRN Reason: Loose Stool Stop: 05/31/23 00:52 Hydroxyzine HCl (Hydroxyzine Hcl 25 Mg Tab) 50 mg PO HSZ PRN PRN Reason: Insomnia Stop: 05/31/23 00:52 Hydroxyzine HCl (Hydroxyzine Hcl 25 Mg Tab) 25 mg PO Q4H PRN PRN Reason: Anxiety Stop: 05/31/23 00:52 Levothyroxine Sodium (Levothyroxine Sodium 88 Mcg Tablet) 88 mcg PO DAILY TU Stop: 05/31/23 09:19 Last Admin: 05/03/23 08:02 Dose: 88 mcg Magnesium Hydroxide (Magnesium Hydroxide Susp 30 Ml Udc) 30 ml PO DAILY PRN PRN Reason: Constipation Stop: 05/31/23 00:52 Melatonin (Melatonin 3 Mg Tab) 6 mg PO HS PRN PRN Reason: Sleep Stop: 05/30/23 23:52 Last Admin: 05/02/23 22:10 Dose: 6 mg Methylphenidate HCl (Methylphenidate Hcl 10 Mg Tablet) 10 mg PO BID@0900,1400 TU Stop: 05/15/23 09:29 Last Admin: 05/03/23 09:39 Dose: 10 mg Mirtazapine (Mirtazapine Tab 15 Mg Tab) 30 mg PO HS TU Stop: 05/31/23 21:59 Last Admin: 05/02/23 21:36 Dose: 30 mg Olanzapine (Olanzapine 2.5 Mg Tab) 7.5 mg PO HS TU Stop: 05/30/23 23:54 Last Admin: 05/02/23 21:37 Dose: 7.5 mg Sodium Chloride (Sodium Chloride 0.65% Na Soln 45 Ml ([place])) 1 - 2 sprays NA PRN PRN PRN Reason: Nasal Dryness/Congestion Stop: 05/31/23 00:52 Venlafaxine HCl (Venlafaxine Hcl Xr 150 Mg Capxr) 150 mg PO QAM TU Stop: 06/01/23 08:59 Last Admin: 05/03/23 09:39 Dose: 150 mg Mental Health & Subst Abuse Tx Psychiatrist Name of Psychiatrist: [facility]- Dr. Quintanilla Psychiatrist's Date Of Appointment With Psychiatric Provider: 05/14/23 Time of Appointment with Psychiatrist: 4:20 Psychiatric Appointment Comment: Via Zoom Rail Car Painter/Sandblaster Name of Rail Car Painter/Sandblaster: NEREYDA Hoover Phone Number for Rail Car Painter/Sandblaster: [phone] Date of Appointment with Rail Car Painter/Sandblaster: 05/08/23 Time of Appointment with Rail Car Painter/Sandblaster: 11:00 AM Case Management Appointment Comment: [facility] will come to your home to complete intake. Post Discharge Appointments Primary Care Physician Name Of Family Doctor/PCP: HOLLI Primary Care Provider Appointment Comment: [address] [place] [address] Contact Information Discharge Discharge Address: [facility] [address] [place] [address]
[2023-05-03] MEDS: OLANZAPINE 2.5 MG TAB PO SCH (21:54)
[2023-05-03] MEDS: MIRTAZAPINE TAB 15 MG TAB PO SCH (21:54)
[2023-05-03] MEDS: MELATONIN 3 MG TAB PO PRN (21:56)
[2023-05-04] MEDS: LEVOTHYROXINE SODIUM 88 MCG TABLET PO SCH (08:25)
[2023-05-04] MEDS ORDERED: VENLAFAXINE HCL XR 37.5 MG CAPXR PO SCH (09:00)
[2023-05-04] MEDS: METHYLPHENIDATE HCL 10 MG TABLET PO SCH ×2 (09:30→14:16)
[2023-05-04] MEDS: VENLAFAXINE HCL XR 150 MG CAPXR PO SCH (10:16)
[2023-05-04] MEDS: VENLAFAXINE HCL XR 37.5 MG CAPXR PO SCH (10:16)
--- NOTE | 2023-05-04 18:42 | Psychiatric Progress Note ---
Date of Service May 04, 2023 Impression / Recommendations Impression Trista is a 83 year old with a history of MDD, JED, panic disorder and insomnia who was admitted for worsening depression, self-guilt and SI. Diagnostically consistent with major depressive disorder and possible contribution from age related changes or side effects from olanzapine (uses due to insomnia but may be having some carry over excessive sedation effects). She is deemed in need of psychiatric hospitalization for diagnostic clarification, safety and stabilization, medication management and development of further coping skills. MNPR due insomnia, age and COVID prevalence in community 05/04/2023: Intense preoccupation and self-reproach related to long-ago extramarital affair continues. Has tolerated small increase in venlafaxine XR with no evident adverse effects. At this point it's difficult to avoid viewing pt's beliefs about the affair and its role in her life as anything less than delusional. The intensity of these beliefs impairs her ability to devote mental effort and time to more pertinent and current issues. In my opinion the benefit from antipsychotic medication outweighs the known significant risks of use in a person her age. Since most antipsychotic medications can exacerbate obsessive thinking while olanzapine has been shown in many cases to reduce it, I spoke with her about increasing olanzapine, about which she is somewhat hesitant. 05/03/2023: Remains strongly preoccupied with feelings of being a sinner and self-reproach for an extramarital affair 10 yr ago (for which she says her forgave her and for which she believes God has forgiven her, but for which she can't forgive herself). Her thought and speech return to this topic over and over. Thinks appetite has improved a bit. Tolerating medication changes including increase of mirtazapine. Discussed possibility of increasing venlafaxine XR (which pt says her outpatient psychiatrist has recommended more than once). I spent over 70 minutes [id number] with pt (in addition to further time reviewing with staff and reading records) reviewing her history, including educational and occupational, as well as psychiatric history and response to treatment. I am not inclined to change her diagnosis from that of recurrent major depression and generalized anxiety disorder, and see no significant memory issues. 05/02/2023: Still with severe depression and anxiety but trying to engage in groups despite her fatigue and low motivation. Some improvement in stomach symptoms with increase of mirtazapine but still struggling a bit with sleep. Discussed with her outpatient psychiatrist Dr. Moura. Overall, I spent a total of 40 minutes with this case including review of chart records, direct evaluation of the patient at bedside, counseling the patient, discussion of the patient with the interdisciplinary treatment team, discussion with her outpatient psychiatrist, and documentation in the electronic health record. (1) Major depressive disorder, recurrent severe without psychotic features: (2) JED (generalized anxiety disorder): (3) Insomnia: Plan 05/04/2023: * increase home medication olanzapine to 10 mg QHS * continue home medication methylphenidate 10 mg BID * continue mirtazapine 30 mg QHS - increased 05/02/2023 * continue home medication olanzapine 7.5 mg QHS 05/03/2023: * increase venlafaxine XR to 187.5 mg daily; anticipate further titration to 225 mg daily if tolerated * continue home medication methylphenidate 10 mg BID * continue mirtazapine 30 mg QHS - increased 05/02/2023 * continue home medication olanzapine 7.5 mg QHS 05/02/2023: Continue with current medications and treatment plan. 05/01/2023:The patient was admitted to the [facility] ([facility] mental health unit) on q15 min checks (behavioral with suicide precautions) for safety. The patient will participate in group, recreational, and milieu therapies and will be offered additional individual and family sessions as clinically appropriate. -Increase mirtazapine to 30mg HS -Continue olanzapine 7.5mg HS (possibly consider dose reduction), methylphenidate 10mg 0900 and 1400, effexor XR 150mg qd Inventory Assets Strengths: supportive relationships, willing to get treatment Needs: safety and stabilization, medication adjustment, additional coping skills, increased outpatient services Suicide Risk Level Suicide Risk Level: Moderate (q15 min suicide checks) (severe depression with SI and self-guilt prior to admission but feels safe in the hospital, able to safety contract and agrees to let nursing/staff know should they develop plan, intent or feel unable to remain safe.) Suicide Risk Level Comments: Risk Factors Assessment Male: No : Yes Do You Have Access To A Gun?: No Health Problems: No Mental Health Diagnoses: Yes Substance Use Disorders: No Previous Attempt: Yes Family History of Suicide: No Previous Psychiatric Hospitalization: Yes Protective Factors Assessment Employed: No Stable Relationships: Yes Supportive Family: Yes Good Rapport with Provider: Yes Interval History Identifying Information TRISTA CANADA is a 83-year-old woman who currently lives in [place], has a history of MDD, JED, panic disorder and insomnia, and was admitted on 04/30/23 22:54 on a 201 voluntary commitment for worsening depression and SI. Chief Complaint "[]". Review of Systems Sleep Information Total Hours of Sleep: 7.25 Meal Information Percent Meal Consumed - Breakfast: 100 Percent Meal Consumed - Lunch: 50 Percent Meal Consumed - Dinner: 75 Subjective Subjective Patient was seen & assessed and interval progress reviewed in a multidisciplinary team meeting with nursing and social work. For details, see the "Impression" section. Physical Exam Psychiatric Orientation: alert, oriented to person, oriented to place, oriented to time and cooperative Apperance: appropriately dressed and appropriately groomed Eye Contact: good eye contact Motor Behavior: no abnormal motor movements Speech: normal rate/rhythm/volume of speech Affect: + depressed affect, + anxious affect and + constricted affect Mood: + depressed mood, + anxious mood and + dysphoric mood Thought Process: goal directed thought process Thought Content: + preoccupation (with affair 10 years ago) and reality based without delusions Suicidal Thoughts: denies suicidal plan and denies suicidal intent; + reports suicidal thoughts (intermittent thoughts) Homicidal Thoughts: denies homicidal thoughts Hallucinations: no auditory hallucinations and no visual hallucinations Cognition: recent memory grossly intact, remote memory grossly intact, attention grossly intact and language grossly intact Estimated Intelligence: consistent with education level Insight: + limited insight and + fair insight Judgment: + limited judgement and + fair judgement Vital Signs (Past 24 Hours) Last Vital Signs Temp 36.8 C 05/04/23 06:45 Pulse 101 H 05/04/23 06:45 Resp 16 05/04/23 06:45 BP 141/83 H 05/04/23 06:45 Pulse Ox 97 05/01/23 00:11 O2 Del Method Room Air 05/01/23 00:11 Results & Data ([facility]) Current Inpatient Medications Current Inpatient Medications: Current Inpatient Medications Acetaminophen (Acetaminophen 325 Mg Tab) 650 mg PO Q4H PRN PRN Reason: Headache or Minor Fever Stop: 05/31/23 00:52 Al Hydrox/Mg Hydrox/Simethicone (Aluminum/Magnesium Susp 30 Ml Udc) 30 ml PO Q4H PRN PRN Reason: GI Upset Stop: 05/31/23 00:52 Bismuth Subsalicylate (Bismuth Subsalicylate Liqd 236 Ml) 15 ml PO PRN PRN PRN Reason: Loose Stool Stop: 05/31/23 00:52 Hydroxyzine HCl (Hydroxyzine Hcl 25 Mg Tab) 50 mg PO HSZ PRN PRN Reason: Insomnia Stop: 05/31/23 00:52 Hydroxyzine HCl (Hydroxyzine Hcl 25 Mg Tab) 25 mg PO Q4H PRN PRN Reason: Anxiety Stop: 05/31/23 00:52 Levothyroxine Sodium (Levothyroxine Sodium 88 Mcg Tablet) 88 mcg PO DAILY TU Stop: 05/31/23 09:19 Last Admin: 05/04/23 08:25 Dose: 88 mcg Magnesium Hydroxide (Magnesium Hydroxide Susp 30 Ml Udc) 30 ml PO DAILY PRN PRN Reason: Constipation Stop: 05/31/23 00:52 Melatonin (Melatonin 3 Mg Tab) 6 mg PO HS PRN PRN Reason: Sleep Stop: 05/30/23 23:52 Last Admin: 05/03/23 21:56 Dose: 6 mg Methylphenidate HCl (Methylphenidate Hcl 10 Mg Tablet) 10 mg PO BID@0900,1400 TU Stop: 05/15/23 09:29 Last Admin: 05/04/23 14:16 Dose: 10 mg Mirtazapine (Mirtazapine Tab 15 Mg Tab) 30 mg PO HS TU Stop: 05/31/23 21:59 Last Admin: 05/03/23 21:54 Dose: 30 mg Olanzapine (Olanzapine 2.5 Mg Tab) 7.5 mg PO HS TU Stop: 05/30/23 23:54 Last Admin: 05/03/23 21:54 Dose: 7.5 mg Sodium Chloride (Sodium Chloride 0.65% Na Soln 45 Ml ([place])) 1 - 2 sprays NA PRN PRN PRN Reason: Nasal Dryness/Congestion Stop: 05/31/23 00:52 Venlafaxine HCl (Venlafaxine Hcl Xr 37.5 Mg Capxr) 37.5 mg PO QAM TU Stop: 06/03/23 08:59 Last Admin: 05/04/23 10:16 Dose: 37.5 mg Venlafaxine HCl (Venlafaxine Hcl Xr 150 Mg Capxr) 150 mg PO DAILY TU Stop: 06/03/23 08:59 Last Admin: 05/04/23 10:16 Dose: 150 mg Mental Health & Subst Abuse Tx Psychiatrist Name of Psychiatrist: Terence Orozco- Dr. Quintanilla Psychiatrist's Date Of Appointment With Psychiatric Provider: 05/14/23 Time of Appointment with Psychiatrist: 4:20 Psychiatric Appointment Comment: Via [employer] Welt Slasher Name of Welt Slasher: NEREYDA Goncalves - Katlin Hoover Phone Number for Welt Slasher: [phone] Date of Appointment with Welt Slasher: 05/08/23 Time of Appointment with Welt Slasher: 11:00 AM Case Management Appointment Comment: Katlin will come to your home to complete intake. Post Discharge Appointments Primary Care Physician Name Of Family Doctor/PCP: HOLLI Primary Care Provider Appointment Comment: [address] [place] [address] Contact Information Discharge Discharge Address: [address] [place] [address]
[2023-05-04] MEDS: POLYETHYLENE (MIRALAX) 17 GM PACK PO SCH (19:29)
[2023-05-04] MEDS: MIRTAZAPINE TAB 15 MG TAB PO SCH (21:44)
[2023-05-04] MEDS: OLANZapine 10 MG TAB PO SCH (21:45)
[2023-05-04] MEDS: MELATONIN 3 MG TAB PO PRN (21:46)
[2023-05-05] MEDS: LEVOTHYROXINE SODIUM 88 MCG TABLET PO SCH (07:58)
[2023-05-05] MEDS: METHYLPHENIDATE HCL 10 MG TABLET PO SCH ×2 (08:32→13:52)
[2023-05-05] MEDS: POLYETHYLENE (MIRALAX) 17 GM PACK PO SCH ×2 (08:33→22:19)
[2023-05-05] MEDS: VENLAFAXINE HCL XR 150 MG CAPXR PO SCH (08:33)
[2023-05-05] MEDS: VENLAFAXINE HCL XR 37.5 MG CAPXR PO SCH (08:33)
--- NOTE | 2023-05-05 12:12 | Psychiatric Progress Note ---
Date of Service May 05, 2023 Impression / Recommendations Impression Trista is a 83 year old with a history of MDD, JED, panic disorder and insomnia who was admitted for worsening depression, self-guilt and SI. Diagnostically consistent with major depressive disorder and possible contribution from age related changes or side effects from olanzapine (uses due to insomnia but may be having some carry over excessive sedation effects). She is deemed in need of psychiatric hospitalization for diagnostic clarification, safety and stabilization, medication management and development of further coping skills. MNPR due insomnia, age and COVID prevalence in community 05/05/2023: Acknowledges with some hesitation having slept better last night, possibly attributable to last night's increase in olanzapine. She speaks less of her feelings of being an irredeemable sinner, but this may be due to her increasing discomfort from constipation. She'd started polyethylene glycol last night with no result, so we discussed increasing to BID today. 05/04/2023: Intense preoccupation and self-reproach related to long-ago extramarital affair continues. Has tolerated small increase in venlafaxine XR with no evident adverse effects. At this point it's difficult to avoid viewing pt's beliefs about the affair and its role in her life as anything less than delusional. The intensity of these beliefs impairs her ability to devote mental effort and time to more pertinent and current issues. In my opinion the benefit from antipsychotic medication outweighs the known significant risks of use in a person her age. Since most antipsychotic medications can exacerbate obsessive thinking while olanzapine has been shown in many cases to reduce it, I spoke with her about increasing olanzapine, about which she is somewhat hesitant. 05/03/2023: Remains strongly preoccupied with feelings of being a sinner and self-reproach for an extramarital affair 10 yr ago (for which she says her forgave her and for which she believes God has forgiven her, but for which she can't forgive herself). Her thought and speech return to this topic over and over. Thinks appetite has improved a bit. Tolerating medication changes including increase of mirtazapine. Discussed possibility of increasing v enlafaxine XR (which pt says her outpatient psychiatrist has recommended more than once). I spent over 70 minutes [id number] with pt (in addition to further time reviewing with staff and reading records) reviewing her history, including educational and occupational, as well as psychiatric history and response to treatment. I am not inclined to change her diagnosis from that of recurrent major depression and generalized anxiety disorder, and see no significant memory issues. 05/02/2023: Still with severe depression and anxiety but trying to engage in groups despite her fatigue and low motivation. Some improvement in stomach symptoms with increase of mirtazapine but still struggling a bit with sleep. Discussed with her outpatient psychiatrist Dr. Moura. Overall, I spent a total of 40 minutes with this case including review of chart records, direct evaluation of the patient at bedside, counseling the patient, discussion of the patient with the interdisciplinary treatment team, discussion with her outpatient psychiatrist, and documentation in the electronic health record. (1) Major depressive disorder, recurrent severe without psychotic features: (2) JED (generalized anxiety disorder): (3) Insomnia: Plan 05/05/2023: * continue olanzapine 10 mg QHS - home medication increased from 7.5 mg on 05/04/2023 * continue home medication methylphenidate 10 mg BID * continue mirtazapine 30 mg QHS - increased 05/02/2023 * continue home medication olanzapine 7.5 mg QHS 05/04/2023: * increase home medication olanzapine to 10 mg QHS * continue home medication methylphenidate 10 mg BID * continue mirtazapine 30 mg QHS - increased 05/02/2023 * continue home medication olanzapine 7.5 mg QHS 05/03/2023: * increase venlafaxine XR to 187.5 mg daily; anticipate further titration to 225 mg daily if tolerated * continue home medication methylphenidate 10 mg BID * continue mirtazapine 30 mg QHS - increased 05/02/2023 * continue home medication olanzapine 7.5 mg QHS 05/02/2023: Continue with current medications and treatment plan. 05/01/2023:The patient was admitted to the [facility] ([facility] mental health unit) on q15 min checks (behavioral with suicide precautions) for safety. The patient will participate in group, recreational, and milieu therapies and will be offered additional individual and family sessions as clinically appropriate. -Increase mirtazapine to 30mg HS -Continue olanzapine 7.5mg HS (possibly consider dose reduction), methylphenidate 10mg 0900 and 1400, effexor XR 150mg qd Inventory Assets Strengths: supportive relationships, willing to get treatment Needs: safety and stabilization, medication adjustment, additional coping skills, increased outpatient services Suicide Risk Level Suicide Risk Level: Moderate (q15 min suicide checks) (severe depression with SI and self-guilt prior to admission but feels safe in the hospital, able to safety contract and agrees to let nursing/staff know should they develop plan, intent or feel unable to remain safe.) Suicide Risk Level Comments: Risk Factors Assessment Male: No : Yes Do You Have Access To A Gun?: No Health Problems: No Mental Health Diagnoses: Yes Substance Use Disorders: No Previous Attempt: Yes Family History of Suicide: No Previous Psychiatric Hospitalization: Yes Protective Factors Assessment Employed: No Stable Relationships: Yes Supportive Family: Yes Good Rapport with Provider: Yes Interval History Identifying Information TRISTA CANADA is a 83-year-old woman who currently lives in [place], has a history of MDD, JED, panic disorder and insomnia, and was admitted on 04/30/23 22:54 on a 201 voluntary commitment for worsening depression and SI. Chief Complaint "Not much different". Review of Systems Sleep Information Total Hours of Sleep: 6.5 Meal Information Percent Meal Consumed - Breakfast: 100 Percent Meal Consumed - Lunch: 50 Percent Meal Consumed - Dinner: 100 Subjective Subjective Patient was seen & assessed and interval progress reviewed in a ltidisciplinary team meeting with the treatment team. For details, see the "Impression" section. Physical Exam Psychiatric Orientation: alert, oriented to person, oriented to place, oriented to time and cooperative Apperance: appropriately dressed and appropriately groomed Eye Contact: good eye contact Motor Behavior: no abnormal motor movements Speech: normal rate/rhythm/volume of speech Affect: + anxious affect and + constricted affect Mood: + anxious mood and + dysphoric mood Thought Process: goal directed thought process Thought Content: + preoccupation (with affair 10 years ago) and reality based without delusions Suicidal Thoughts: denies suicidal plan and denies suicidal intent; + reports suicidal thoughts (intermittent thoughts) Homicidal Thoughts: denies homicidal thoughts Hallucinations: no auditory hallucinations and no visual hallucinations Cognition: recent memory grossly intact, remote memory grossly intact, attention grossly intact and language grossly intact Estimated Intelligence: consistent with education level Insight: + limited insight Judgment: + fair judgement Vital Signs (Past 24 Hours) Last Vital Signs Temp 36.4 C L 05/05/23 06:42 Pulse 106 H 05/05/23 06:42 Resp 16 05/05/23 06:42 BP 121/70 05/05/23 06:42 Pulse Ox 97 05/01/23 00:11 O2 Del Method Room Air 05/01/23 00:11 Results & Data ([facility]) Current Inpatient Medications Current Inpatient Medications: Current Inpatient Medications Acetaminophen (Acetaminophen 325 Mg Tab) 650 mg PO Q4H PRN PRN Reason: Headache or Minor Fever Stop: 05/31/23 00:52 Al Hydrox/Mg Hydrox/Simethicone (Aluminum/Magnesium Susp 30 Ml Udc) 30 ml PO Q4H PRN PRN Reason: GI Upset Stop: 05/31/23 00:52 Bismuth Subsalicylate (Bismuth Subsalicylate Liqd 236 Ml) 15 ml PO PRN PRN PRN Reason: Loose Stool Stop: 05/31/23 00:52 Hydroxyzine HCl (Hydroxyzine Hcl 25 Mg Tab) 50 mg PO HSZ PRN PRN Reason: Insomnia Stop: 05/31/23 00:52 Hydroxyzine HCl (Hydroxyzine Hcl 25 Mg Tab) 25 mg PO Q4H PRN PRN Reason: Anxiety Stop: 05/31/23 00:52 Levothyroxine Sodium (Levothyroxine Sodium 88 Mcg Tablet) 88 mcg PO DAILY TU Stop: 05/31/23 09:19 Last Admin: 05/05/23 07:58 Dose: 88 mcg Magnesium Hydroxide (Magnesium Hydroxide Susp 30 Ml Udc) 30 ml PO DAILY PRN PRN Reason: Constipation Stop: 05/31/23 00:52 Melatonin (Melatonin 3 Mg Tab) 6 mg PO HS PRN PRN Reason: Sleep Stop: 05/30/23 23:52 Last Admin: 05/04/23 21:46 Dose: 6 mg Methylphenidate HCl (Methylphenidate Hcl 10 Mg Tablet) 10 mg PO BID@0900,1400 TU Stop: 05/15/23 09:29 Last Admin: 05/05/23 08:32 Dose: 10 mg Mirtazapine (Mirtazapine Tab 15 Mg Tab) 30 mg PO HS TU Stop: 05/31/23 21:59 Last Admin: 05/04/23 21:44 Dose: 30 mg Olanzapine (Olanzapine 10 Mg Tab) 10 mg PO HS TU Stop: 06/03/23 21:59 Last Admin: 05/04/23 21:45 Dose: 10 mg Polyethylene Glycol (Polyethylene (Miralax) 17 Gm Pack) 17 gm PO BID TU Stop: 06/04/23 20:59 Sodium Chloride (Sodium Chloride 0.65% Na Soln 45 Ml ([place])) 1 - 2 sprays NA PRN PRN PRN Reason: Nasal Dryness/Congestion Stop: 05/31/23 00:52 Venlafaxine HCl (Venlafaxine Hcl Xr 37.5 Mg Capxr) 37.5 mg PO QAM TU Stop: 06/03/23 08:59 Last Admin: 05/05/23 08:33 Dose: 37.5 mg Venlafaxine HCl (Venlafaxine Hcl Xr 150 Mg Capxr) 150 mg PO DAILY TU Stop: 06/03/23 08:59 Last Admin: 05/05/23 08:33 Dose: 150 mg Mental Health & Subst Abuse Tx Psychiatrist Name of Psychiatrist: [facility]- Dr. Quintanilla Psychiatrist's Date Of Appointment With Psychiatric Provider: 05/14/23 Time of Appointment with Psychiatrist: 4:20 Psychiatric Appointment Comment: Via [employer] Manpower Development Specialist Manager Name of Manpower Development Specialist Manager: NEREYDA Hoover Phone Number for Manpower Development Specialist Manager: [phone] Date of Appointment with Manpower Development Specialist Manager: 05/08/23 Time of Appointment with Manpower Development Specialist Manager: 11:00 AM Case Management Appointment Comment: Katlin will come to your home to complete intake. Post Discharge Appointments Primary Care Physician Name Of Family Doctor/PCP: HOLLI Primary Care Provider Appointment Comment: [address] [place] [address] Contact Information Discharge Discharge Address: [address] [place] [address]
[2023-05-05] MEDS: MIRTAZAPINE TAB 15 MG TAB PO SCH (21:46)
[2023-05-05] MEDS: OLANZapine 10 MG TAB PO SCH (21:47)
[2023-05-05] MEDS: MELATONIN 3 MG TAB PO PRN (21:49)
[2023-05-06] MEDS: POLYETHYLENE (MIRALAX) 17 GM PACK PO SCH ×2 (08:13→21:43)
[2023-05-06] MEDS: VENLAFAXINE HCL XR 150 MG CAPXR PO SCH (08:13)
[2023-05-06] MEDS: LEVOTHYROXINE SODIUM 88 MCG TABLET PO SCH (08:13)
[2023-05-06] MEDS: VENLAFAXINE HCL XR 37.5 MG CAPXR PO SCH (08:13)
[2023-05-06] MEDS: METHYLPHENIDATE HCL 10 MG TABLET PO SCH ×2 (08:14→13:27)
--- NOTE | 2023-05-06 10:39 | Psychiatric Progress Note ---
Date of Service May 06, 2023 Impression / Recommendations Impression Trista is a 83 year old with a history of MDD, JED, panic disorder and insomnia who was admitted for worsening depression, self-guilt and SI. Diagnostically consistent with major depressive disorder and possible contribution from age related changes or side effects from olanzapine (uses due to insomnia but may be having some carry over excessive sedation effects). She is deemed in need of psychiatric hospitalization for diagnostic clarification, safety and stabilization, medication management and development of further coping skills. MNPR due insomnia, age and COVID prevalence in community 05/06/2023: Records received from Dr. Moura. These were very helpful in establishing a number of important differences from history as we'd understood it from her reports. She's had multiple previous psychiatric admissions, and her serious symptoms began years earlier than we'd believed. She has had more medication trials, including changes several times in venlafaxine dose (225 mg appears more effective but she's been concerned about GI side effects). The delusional aspect of her symptoms is much more clear. It's also become apparent that her current symptoms are pretty close to what has been her baseline for some time. Pt has been speaking of a desire for discharge. She has a hard-to-get case management appointment at her home in the morning the day after tomorrow. It appears appropriate to anticipate discharge tomorrow. 05/05/2023: Acknowledges with some hesitation having slept better last night, possibly attributable to last night's increase in olanzapine. She speaks less of her feelings of being an irredeemable sinner, but this may be due to her increasing discomfort from constipation. She'd started polyethylene glycol last night with no result, so we discussed increasing to BID today. 05/04/2023: Intense preoccupation and self-reproach related to long-ago extramarital affair continues. Has tolerated small increase in venlafaxine XR with no evident adverse effects. At this point it's difficult to avoid viewing pt's beliefs about the affair and its role in her life as anything less than delusional. The intensity of these beliefs impairs her ability to devote mental effort and time to more pertinent and current issues. In my opinion the benefit from antipsychotic medication outweighs the known significant risks of use in a person her age. Since most antipsychotic medications can exacerbate obsessive thinking while olanzapine has been shown in many cases to reduce it, I spoke with her about increasing olanzapine, about which she is somewhat hesitant. 05/03/2023: Remains strongly preoccupied with feelings of being a sinner and self-reproach for an extramarital affair 10 yr ago (for which she says her forgave her and for which she believes God has forgiven her, but for which she can't forgive herself). Her thought and speech return to this topic over and over. Thinks appetite has improved a bit. Tolerating medication changes including increase of mirtazapine. Discussed possibility of increasing venlafaxine XR (which pt says her outpatient psychiatrist has recommended more than once). I spent over 70 minutes [id number] with pt (in addition to further time reviewing with staff and reading records) reviewing her history, including educational and occupational, as well as psychiatric history and response to treatment. I am not inclined to change her diagnosis from that of recurrent major depression and generalized anxiety disorder, and see no significant memory issues. 05/02/2023: Still with severe depression and anxiety but trying to engage in groups despite her fatigue and low motivation. Some improvement in stomach symptoms with increase of mirtazapine but still struggling a bit with sleep. Discussed with her outpatient psychiatrist Dr. Moura. Overall, I spent a total of 40 minutes with this case including review of chart records, direct evaluation of the patient at bedside, counseling the patient, discussion of the patient with the interdisciplinary treatment team, discussion with her outpatient psychiatrist, and documentation in the electronic health record. (1) Major depressive disorder, recurrent severe without psychotic features: (2) JED (generalized anxiety disorder): (3) Insomnia: Plan 05/06/2023: * continue olanzapine 10 mg QHS - home medication increased from 7.5 mg on 05/04/2023 * continue home medication methylphenidate 10 mg BID * continue mirtazapine 30 mg QHS - increased 05/02/2023 * continue home medication olanzapine 7.5 mg QHS * anticipate discharge tomorrow after family meeting 05/05/2023: * continue olanzapine 10 mg QHS - home medication increased from 7.5 mg on 05/04/2023 * continue home medication methylphenidate 10 mg BID * continue mirtazapine 30 mg QHS - increased 05/02/2023 * continue home medication olanzapine 7.5 mg QHS 05/04/2023: * increase home medication olanzapine to 10 mg QHS * continue home medication methylphenidate 10 mg BID * continue mirtazapine 30 mg QHS - increased 05/02/2023 * continue home medication olanzapine 7.5 mg QHS 05/03/2023: * increase venlafaxine XR to 187.5 mg daily; anticipate further titration to 225 mg daily if tolerated * continue home medication methylphenidate 10 mg BID * continue mirtazapine 30 mg QHS - increased 05/02/2023 * continue home medication olanzapine 7.5 mg QHS 05/02/2023: Continue with current medications and treatment plan. 05/01/2023:The patient was admitted to the [facility] ([facility]) on q15 min checks (behavioral with suicide precautions) for safety. The patient will participate in group, recreational, and milieu therapies and will be offered additional individual and family sessions as clinically appropriate. -Increase mirtazapine to 30mg HS -Continue olanzapine 7.5mg HS (possibly consider dose reduction), methylphenidate 10mg 0900 and 1400, effexor XR 150mg qd Inventory Assets Strengths: supportive relationships, willing to get treatment Needs: safety and stabilization, medication adjustment, additional coping skills, increased outpatient services Suicide Risk Level Suicide Risk Level: Moderate (q15 min suicide checks) (severe depression with SI and self-guilt prior to admission but feels safe in the hospital, able to safety contract and agrees to let nursing/staff know should they develop plan, intent or feel unable to remain safe.) Suicide Risk Level Comments: Risk Factors Assessment Male: No : Yes Do You Have Access To A Gun?: No Health Problems: No Mental Health Diagnoses: Yes Substance Use Disorders: No Previous Attempt: Yes Family History of Suicide: No Previous Psychiatric Hospitalization: Yes Protective Factors Assessment Employed: No Stable Relationships: Yes Supportive Family: Yes Good Rapport with Provider: Yes Interval History Identifying Information TRISTA CANADA is a 83-year-old woman who currently lives in [place], has a history of MDD, JED, panic disorder and insomnia, and was admitted on 04/30/23 22:54 on a 201 voluntary commitment for worsening depression and SI. Chief Complaint "I'm looking forward to a visit from my son". Review of Systems Sleep Information Total Hours of Sleep: 6.5 Meal Information Percent Meal Consumed - Breakfast: 100 Percent Meal Consumed - Lunch: 100 Percent Meal Consumed - Dinner: 100 Subjective Subjective Patient was seen & assessed and interval progress reviewed in a multidisciplinary team meeting with the treatment team. For details, see the "Impression" section. Physical Exam Psychiatric Orientation: alert, oriented x 3, oriented to person, oriented to place, oriented to time and cooperative Apperance: appropriately dressed and appropriately groomed Eye Contact: good eye contact Motor Behavior: no abnormal motor movements Speech: normal rate/rhythm/volume of speech Affect: + depressed affect, + anxious affect and + constricted affect Mood: + depressed mood, + anxious mood and + dysphoric mood Thought Process: goal directed thought process Thought Content: + preoccupation (with affair 10 years ago) and reality based without delusions Suicidal Thoughts: denies suicidal plan and denies suicidal intent; + reports suicidal thoughts (intermittent thoughts) Homicidal Thoughts: denies homicidal thoughts Hallucinations: no auditory hallucinations and no visual hallucinations Cognition: recent memory grossly intact, remote memory grossly intact, attention grossly intact and language grossly intact Estimated Intelligence: consistent with education level Insight: + limited insight and + fair insight Judgment: + limited judgement and + fair judgement Vital Signs (Past 24 Hours) Last Vital Signs Temp 36.5 C 05/06/23 07:05 Pulse 94 H 05/06/23 08:45 Resp 16 05/06/23 07:05 BP 113/74 05/06/23 08:45 Pulse Ox 97 05/01/23 00:11 O2 Del Method Room Air 05/01/23 00:11 Results & Data ([facility]) Current Inpatient Medications Current Inpatient Medications: Current Inpatient Medications Acetaminophen (Acetaminophen 325 Mg Tab) 650 mg PO Q4H PRN PRN Reason: Headache or Minor Fever Stop: 05/31/23 00:52 Al Hydrox/Mg Hydrox/Simethicone (Aluminum/Magnesium Susp 30 Ml Udc) 30 ml PO Q4H PRN PRN Reason: GI Upset Stop: 05/31/23 00:52 Bismuth Subsalicylate (Bismuth Subsalicylate Liqd 236 Ml) 15 ml PO PRN PRN PRN Reason: Loose Stool Stop: 05/31/23 00:52 Hydroxyzine HCl (Hydroxyzine Hcl 25 Mg Tab) 50 mg PO HSZ PRN PRN Reason: Insomnia Stop: 05/31/23 00:52 Hydroxyzine HCl (Hydroxyzine Hcl 25 Mg Tab) 25 mg PO Q4H PRN PRN Reason: Anxiety Stop: 05/31/23 00:52 Levothyroxine Sodium (Levothyroxine Sodium 88 Mcg Tablet) 88 mcg PO DAILY TU Stop: 05/31/23 09:19 Last Admin: 05/06/23 08:13 Dose: 88 mcg Magnesium Hydroxide (Magnesium Hydroxide Susp 30 Ml Udc) 30 ml PO DAILY PRN PRN Reason: Constipation Stop: 05/31/23 00:52 Melatonin (Melatonin 3 Mg Tab) 6 mg PO HS PRN PRN Reason: Sleep Stop: 05/30/23 23:52 Last Admin: 05/05/23 21:49 Dose: 6 mg Methylphenidate HCl (Methylphenidate Hcl 10 Mg Tablet) 10 mg PO BID@0900,1400 TU Stop: 05/15/23 09:29 Last Admin: 05/06/23 08:14 Dose: 10 mg Mirtazapine (Mirtazapine Tab 15 Mg Tab) 30 mg PO HS TU Stop: 05/31/23 21:59 Last Admin: 05/05/23 21:46 Dose: 30 mg Olanzapine (Olanzapine 10 Mg Tab) 10 mg PO HS TU Stop: 06/03/23 21:59 Last Admin: 05/05/23 21:47 Dose: 10 mg Polyethylene Glycol (Polyethylene (Miralax) 17 Gm Pack) 17 gm PO BID TU Stop: 06/04/23 20:59 Last Admin: 05/06/23 08:13 Dose: 17 gm Sodium Chloride (Sodium Chloride 0.65% Na Soln 45 Ml (Flanagan)) 1 - 2 sprays NA PRN PRN PRN Reason: Nasal Dryness/Congestion Stop: 05/31/23 00:52 Venlafaxine HCl (Venlafaxine Hcl Xr 37.5 Mg Capxr) 37.5 mg PO QAM TU Stop: 06/03/23 08:59 Last Admin: 05/06/23 08:13 Dose: 37.5 mg Venlafaxine HCl (Venlafaxine Hcl Xr 150 Mg Capxr) 150 mg PO DAILY TU Stop: 06/03/23 08:59 Last Admin: 05/06/23 08:13 Dose: 150 mg Mental Health & Subst Abuse Tx Psychiatrist Name of Psychiatrist: [facility]- Dr. Quintanilla Psychiatrist's Date Of Appointment With Psychiatric Provider: 05/14/23 Time of Appointment with Psychiatrist: 4:20 Psychiatric Appointment Comment: [employer] Properties Supervisor Name of Properties Supervisor: NEREYDA Goncalves - Katlin Hoover Phone Number for Properties Supervisor: [phone] Date of Appointment with Properties Supervisor: 05/08/23 Time of Appointment with Properties Supervisor: 11:00 AM Case Management Appointment Comment: Katlin will come to your home to complete intake. Post Discharge Appointments Primary Care Physician Name Of Family Doctor/PCP: HOLLI Primary Care Provider Appointment Comment: [address] [place] [address] Contact Information Discharge Discharge Address: [address] [place] [address]
[2023-05-06] MEDS: MIRTAZAPINE TAB 15 MG TAB PO SCH (21:43)
[2023-05-06] MEDS: OLANZapine 10 MG TAB PO SCH (21:43)
[2023-05-06] MEDS: MELATONIN 3 MG TAB PO PRN (21:43)
--- NOTE | 2023-05-07 09:18 | Discharge Summary ---
Date of Service May 07, 2023 History of Present Illness Trista presents for psychiatric admission for worsening depression and SI in the context of intense self-guilt from a past affair "I feel like God isn't forgiving me" and feels like her worsening depression is punishment for this. She's been isolating and can't get better. She has struggled recently with decreased energy, low motivation, anhedonia, decreased appetite, difficulty concentrating and SI starting over the last month. Used to see friends at [facility] but hasn't attended either since February due to low energy. When she was going to psych rehab her goal was to cook two meals a week but recently she has been eating TV dinners or her [id number] brings her food. Her son and [id number] do the grocery shopping and drive her to appointments. Her sister drives her to [facility] and a van picked her up for psych rehab. Additional recent history per ED CM note from 04/30/2023: "The patient continues to express she doesnt want to be here (meaning living) and when asked if she has a plan, she states she wants to do it but doesnt know how. The patient reports her main stressors are her mental health problems as well as her recent decrease in activity due to feeling tired all the time. The patient reports depressive symptoms of andergia, anhedonia and decreased concentration. She reports decreased appetite due to her stomach bothering her at times (also a symptom of her anxiety) and denies manic episodes. She reports her anxiety is currently a 7 and her symptoms are generally feeling her heart racing and feeling restless. The patient denies hallucinations, delusional thinking, history of smoking, self-injurious behaviors and access to weapons. Discussion held with the patient about an inpatient stay, and she states that thats what Dr. Del Rosario feels would be best. She is currently prescribed psychiatric medications of methylphenidate, mirtazapine, melatonin, olanzapine and effexor XR (she's been taking 150mg daily but dose recently increased by her outpatient psychiatrist due to worsening depression but she hasn't been taking this as took a few doses and it upset her stomach but this persisted even after stopping the higher dose). She states she was afraid the higher dose of Effexor "would cause more problems" so hasn't been taking the higher dose in the outpatient setting. She had mini-cog testing in September 2022 with a score of 5/5. Physical Exam Psychiatric Orientation: alert, oriented x 3, oriented to person, oriented to place, oriented to time and cooperative Apperance: appropriately dressed and appropriately groomed Eye Contact: good eye contact Motor Behavior: no abnormal motor movements Speech: normal rate/rhythm/volume of speech Affect: + anxious affect and + constricted affect Mood: + anxious mood and + dysphoric mood Thought Process: goal directed thought process Thought Content: + preoccupation (with affair 10 years ago) Suicidal Thoughts: denies suicidal thoughts, denies suicidal plan and denies suicidal intent Homicidal Thoughts: denies homicidal thoughts Hallucinations: no auditory hallucinations and no visual hallucinations Cognition: recent memory grossly intact, remote memory grossly intact, attention grossly intact and language grossly intact Estimated Intelligence: consistent with education level Insight: + fair insight Judgment: + fair judgement Vital Signs (Past 24 Hours) Last Vital Signs Temp 36.6 C 05/07/23 06:29 Pulse 101 H 05/07/23 06:30 Resp 16 05/07/23 06:29 BP 88/59 L 05/07/23 06:30 Pulse Ox 97 05/01/23 00:11 O2 Del Method Room Air 05/01/23 00:11 See admission H&P and DOD assessment. Principal Diagnosis Major Depressive Disorder, Recurrent, Severe, with Psychotic Features Psychiatric Data See daily stay summary. In short, safety was maintained and the patient was cooperative with care. Medication changes included increase of venlafaxine XR, olanzapine, and mirtazapine and they tolerated this well. A family session was held and safety plan was completed prior to discharge. Day of Discharge Assessment Today the patient voices readiness for discharge. They note improvement in mood and deny thoughts to harm self or others. Thoughts remain organized and they are improved from admission. There is no evidence of psychosis. They agree to take mediations as prescribed and keep follow-up appointments. They are stable for discharge to outpatient level of care. Transition of Care Transition Of Care Record: was reviewed with the patient Advance Directives Advance Directives Information Provided: Yes Advance Directives: No Mental Health Advance Directive: No Advance Directives on File: No Living Will: No Power of Certified Personal Chef: No Advance Directives Reason:: Declines as Mental Health Visit. Suicide Risk Level Suicide Risk Level: Low (q15 min observation checks) Suicide Risk Level Comments: denies any suicidal thoughts Risk Factors Assessment Male: No : Yes Do You Have Access To A Gun?: No Health Problems: No Mental Health Diagnoses: Yes Substance Use Disorders: No Previous Attempt: Yes Family History of Suicide: No Previous Psychiatric Hospitalization: Yes Protective Factors Assessment Employed: No Stable Relationships: Yes Supportive Family: Yes Good Rapport with Provider: Yes Total Time Total Time Spent: Greater Than 30 Minutes Total Time Includes: Examination of the patient, Discharge Planning, Medication Reconciliation and As well as (documentation) Discharge Data Lab Results 04/30/23 04/30/23 04/30/23 17:08 17:08 17:08 WBC 9.75 RBC 4.77 Hgb 14.9 Hct 44.2 MCV 92.7 MCH 31.2 MCHC 33.7 RDW Std Deviation 40.9 RDW Coeff of Belinda 11.9 Plt Count 352 MPV 9.6 Immature Gran % (Auto) 0.2 Neut % (Auto) 73.1 Lymph % (Auto) 15.3 [place] % (Auto) 9.0 Eos % (Auto) 1.4 Baso % (Auto) 1.0 Neut # (Auto) 7.12 H Lymph # (Auto) 1.49 [place] # (Auto) 0.88 H Eos # (Auto) 0.14 Baso # (Auto) 0.10 Immature Gran # (Auto) 0.02 Sodium 136 Potassium 4.0 Chloride 101 Carbon Dioxide 28 Anion Gap 7 BUN 12 Creatinine 0.86 Est Cr Clr Drug Dosing Not Reportable Est GFR ( Amer) 72.9 Est GFR (Non-Af Amer) 62.9 BUN/Creatinine Ratio 14.0 Glucose 88 Calcium 9.0 Total Bilirubin 0.6 AST 17 ALT 12 Alkaline Phosphatase 50 Total Protein 7.4 Albumin 4.2 Globulin 3.2 Albumin/Globulin Ratio 1.3 TSH 0.953 Urine Color Urine Appearance Urine pH Ur Specific Goodman Urine Protein Urine Glucose (UA) Urine Ketones Urine Blood Urine Nitrite Urine Bilirubin Urine Urobilinogen Ur Leukocyte Esterase Urine WBC (Auto) Urine RBC (Auto) U Hyaline Cast (Auto) U Epithel Cells (Auto) Urine Bacteria (Auto) Salicylates Urine Opiates Screen Ur Methadone, Qual Acetaminophen Urine Barbiturates Ur Phencyclidine (PCP) U Amphetamin/Meth Scrn MDMA (Ecstasy) Screen U Benzodiazepines Scrn Ur Cocaine Metabolite U Marijuana (THC) Screen Ethyl Alcohol mg/dL SARS-CoV-2, RNA, NAAT 04/30/23 04/30/23 04/30/23 17:08 17:08 Unknown WBC RBC Hgb Hct MCV MCH MCHC RDW Std Deviation RDW Coeff of Belinda Plt Count MPV Immature Gran % (Auto) Neut % (Auto) Lymph % (Auto) [place] % (Auto) Eos % (Auto) Baso % (Auto) Neut # (Auto) Lymph # (Auto) [place] # (Auto) Eos # (Auto) Baso # (Auto) Immature Gran # (Auto) Sodium Potassium Chloride Carbon Dioxide Anion Gap BUN Creatinine Est Cr Clr Drug Dosing Est GFR ( Amer) Est GFR (Non-Af Amer) BUN/Creatinine Ratio Glucose Calcium Total Bilirubin AST ALT Alkaline Phosphatase Total Protein Albumin Globulin Albumin/Globulin Ratio TSH Urine Color Yellow Urine Appearance Clear Urine pH 6.5 Ur Specific Goodman 1.006 Urine Protein Negative Urine Glucose (UA) Negative Urine Ketones Negative Urine Blood Negative Urine Nitrite Negative Urine Bilirubin Negative Urine Urobilinogen Negative Ur Leukocyte Esterase 2+ H Urine WBC (Auto) 10-30 H Urine RBC (Auto) 0-4 U Hyaline Cast (Auto) 0 U Epithel Cells (Auto) >30 H Urine Bacteria (Auto) Negative Salicylates < 3.0 L Urine Opiates Screen Ur Methadone, Qual Acetaminophen < 3 L Urine Barbiturates Ur Phencyclidine (PCP) U Amphetamin/Meth Scrn MDMA (Ecstasy) Screen U Benzodiazepines Scrn Ur Cocaine Metabolite U Marijuana (THC) Screen Ethyl Alcohol mg/dL < 10.0 SARS-CoV-2, RNA, NAAT 04/30/23 04/30/23 Unknown Unknown WBC RBC Hgb Hct MCV MCH MCHC RDW Std Deviation RDW Coeff of Belinda Plt Count MPV Immature Gran % (Auto) Neut % (Auto) Lymph % (Auto) [place] % (Auto) Eos % (Auto) Baso % (Auto) Neut # (Auto) Lymph # (Auto) [place] # (Auto) Eos # (Auto) Baso # (Auto) Immature Gran # (Auto) Sodium Potassium Chloride Carbon Dioxide Anion Gap BUN Creatinine Est Cr Clr Drug Dosing Est GFR ( Amer) Est GFR (Non-Af Amer) BUN/Creatinine Ratio Glucose Calcium Total Bilirubin AST ALT Alkaline Phosphatase Total Protein Albumin Globulin Albumin/Globulin Ratio TSH Urine Color Urine Appearance Urine pH Ur Specific Goodman Urine Protein Urine Glucose (UA) Urine Ketones Urine Blood Urine Nitrite Urine Bilirubin Urine Urobilinogen Ur Leukocyte Esterase Urine WBC (Auto) Urine RBC (Auto) U Hyaline Cast (Auto) U Epithel Cells (Auto) Urine Bacteria (Auto) Salicylates Urine Opiates Screen Neg Ur Methadone, Qual Neg Acetaminophen Urine Barbiturates Neg Ur Phencyclidine (PCP) Neg U Amphetamin/Meth Scrn Neg MDMA (Ecstasy) Screen Neg U Benzodiazepines Scrn Neg Ur Cocaine Metabolite Neg U Marijuana (THC) Screen Neg Ethyl Alcohol mg/dL SARS-CoV-2, RNA, NAAT NEGATIVE Hospital Course (1) Major depressive disorder, recurrent severe without psychotic features: (2) JED (generalized anxiety disorder): (3) Insomnia: Plan 05/06/2023: * continue olanzapine 10 mg QHS - home medication increased from 7.5 mg on 05/04/2023 * continue home medication methylphenidate 10 mg BID * continue mirtazapine 30 mg QHS - increased 05/02/2023 * continue venlafaxine XR 187.5 mg daily - home medication increased from 150 mg on 05/03/2023 * anticipate discharge tomorrow after family meeting 05/05/2023: * continue olanzapine 10 mg QHS - home medication increased from 7.5 mg on 05/04/2023 * continue home medication methylphenidate 10 mg BID * continue mirtazapine 30 mg QHS - increased 05/02/2023 * continue venlafaxine XR 187.5 mg daily - home medication increased from 150 mg on 05/03/2023 05/04/2023: * increase home medication olanzapine to 10 mg QHS * continue home medication methylphenidate 10 mg BID * continue mirtazapine 30 mg QHS - increased 05/02/2023 * continue venlafaxine XR 187.5 mg daily - home medication increased from 150 mg on 05/03/2023 05/03/2023: * increase venlafaxine XR to 187.5 mg daily; anticipate further titration to 225 mg daily if tolerated * continue home medication methylphenidate 10 mg BID * continue mirtazapine 30 mg QHS - increased 05/02/2023 * continue home medication olanzapine 7.5 mg QHS 05/02/2023: Continue with current medications and treatment plan. 05/01/2023:The patient was admitted to the [facility] on q15 min checks (behavioral with suicide precautions) for safety. The patient will participate in group, recreational, and milieu therapies and will be offered additional individual and family sessions as clinically appropriate. -Increase mirtazapine to 30mg HS -Continue olanzapine 7.5mg HS (possibly consider dose reduction), methylphenidate 10mg 0900 and 1400, effexor XR 150mg qd Mental Health & Subst Abuse Tx Psychiatrist Name of Psychiatrist: [facility]- Dr. Quintanilla Psychiatrist's Date Of Appointment With Psychiatric Provider: 05/14/23 Time of Appointment with Psychiatrist: 4:20 Psychiatric Appointment Comment: Via Zoom Therapist Name of Therapist: Arti Best LCSW Therapist's Time of Therapist Appointment: [address] [place] [address] Therapy Appointment Comment: Please call to re-establish therapy services. Apartment Property Manager Name of Apartment Property Manager: [employer] Bhaskar Hoover Phone Number for Apartment Property Manager: [phone] Date of Appointment with Apartment Property Manager: 05/08/23 Time of Appointment with Apartment Property Manager: 11:00 AM Case Management Appointment Comment: Katlin will come to your home to complete intake. Post Discharge Appointments Primary Care Physician Name Of Family Doctor/PCP: [facility] Time of Appointment with PCP: [address] [place] [address] Provider Appointment Comment: Please follow-up with your PCP as needed. Contact Information Discharge Discharge Address: [address] [place] [address] Discharge Plan Discharge Items Patient Disposition: Home - Self-Care Reason For Visit: UNSPECIFIED DEPRESSIVE DISORDER Discharge Diagnosis: Major Depressive Disorder, Recurrent, Severe, with Psychotic Features Activity: Resume your previous activity Non-emergency contact: Primary Care Provider and Psychiatrist Call non-emergency contact if: you have any medication questions and your symptoms worsen Follow-up/Referrals: Justus Manjarrez MD [Primary Care Provider] - Diet: Regular Addtl Attending Provider Instructions: SPECIAL CARE INSTRUCTIONS: 1. Follow through with your scheduled aftercare appointments. If unable to keep an appointment, please call to reschedule. 2. Take your medication only as prescribed. Medication should not be changed or stopped without the approval of your doctor. In the event of worsening symptoms or concerns about side effects, contact your doctor immediately. 3. Utilize new healthy coping skills, anger management skills, and stress management skills learned during your hospitalization. Journal feelings and process them with a support person. Identify stressors or situations that may result in relapse, deterioration or inappropriate behaviors and develop a plan to deal with those issues. 4. If your coping skills are ineffective and you are in crisis, contact your outpatient providers for direction. If unable to reach your providers, please call the [facility] CRISIS LINE AT , go to the [facility] walk-in center at [address], [place], or go to the closest Emergency Room. 5. Avoid alcohol and un-prescribed drugs. 6. You have been provided with the Mental Health Advance Directives Pamphlet for your review. 7. Your condition is stable for discharge to outpatient level of care, but recovery is an ongoing process. Ifthoughts to harm yourself or others return, follow the safety plan developed during your stay. Planning for a safe return home includes securing weapons. Our treatment team recommends weaponsbe removed from the home until your outpatient provider reassesses your progress. In rare cases where the items themselvescannot be removed, guns and ammunitionshould be secured separatelyand keys stored by a reliable personoutside of the home. If you were admitted on an involuntary commitment, the police or other legal authorities may be involved in this process. AFTERCARE APPOINTMENTS: * Please call your insurance company prior to your scheduled appointment to confirm your aftercare providers are covered. Take your insurance information to your appointments. WHO TO CALL AND WHEN: Medical Emergencies: For questions or emergencies related to your hospital stay, please contact the Inpatient Behavioral Health Unit at [phone]. A manager transit is on-call 31/03 for the Behavioral Health Unit for emergencies At any time you feel your situation is an emergency, you may also call 911 immediately. Pending Studies at Discharge: No Stand-Alone Forms: My [facility] Medications and DC Order Prescriptions: New venlafaxine 37.5 mg Capsule,Extended Release 24hr 37.5 mg PO QAM 30 Days Qty: 30 0RF venlafaxine 150 mg Capsule,Extended Release 24hr 150 mg PO DAILY 30 Days Qty: 30 0RF olanzapine 10 mg Tablet 10 mg PO HS 30 Days Qty: 30 0RF Continued levothyroxine 88 mcg tablet 88 mcg PO DAILY Qty: 90 3RF melatonin 3 mg tablet 6 mg PO HS PRN (Reason: sleep) Qty: 60 0RF mirtazapine [Remeron] 15 mg tablet 15 mg PO HS methylphenidate HCl [Ritalin] 10 mg tablet See Rx Instructions PO DAILY Patient Comments: take with breakfast and lunch Rx Instructions: 10mg am and 10mg afternoon orally daily; Discontinued olanzapine 15 mg tablet 7.5 mg PO QPM Qty: 15 5RF venlafaxine 225 mg Tablet Extended Release 24hr 225 mg PO DAILY Discharge Orders: Discharge Order (Routine); Ordered 05/07/23 Ordered By: Iker Dexter Admission Data Admit Date/Time: 04/30/23 22:54 Attending Provider: Glendy Mares Admit Provider: Glendy Mares Primary Care Provider: Justus Manjarrez Other Interventions: Discharge Summary Assessment (RN) Last Done: 05/07/23 13:18 PSY Interdisciplinary Discharge Planning Last Done: 05/07/23 16:15 Coding Level of Care Code [id number] D/C day mgmt > 30 min Diagnoses Major depressive disorder, recurrent severe without psychotic features F33.2 JED (generalized anxiety disorder) F41.1 Insomnia G47.00 Time Spent (min) 36
[2023-05-07] MEDS: LEVOTHYROXINE SODIUM 88 MCG TABLET PO SCH (09:32)
[2023-05-07] MEDS: POLYETHYLENE (MIRALAX) 17 GM PACK PO SCH (09:32)
[2023-05-07] MEDS: METHYLPHENIDATE HCL 10 MG TABLET PO SCH ×2 (09:32→14:02)
[2023-05-07] MEDS: VENLAFAXINE HCL XR 150 MG CAPXR PO SCH (09:33)
[2023-05-07] MEDS: VENLAFAXINE HCL XR 37.5 MG CAPXR PO SCH (09:34)
--- NOTE | 2023-05-08 11:06 | Coding Query ---
CODING QUERY To promote full compliance with coding requirements relating to patient care, provider participation is requested in all cases of restuarant crew worker uncertainty. Please assist us with the question(s) below: Coding Question(s): The Discharge Summary documents, in the Principal Diagnosis area, "Major Depressive Disorder, Recurrent, Severe, with Psychotic Features", however Progress Notes and the Hospital Course on the Discharge Summary document, "Major depressive disorder, recurrent severe without psychotic features". Due to conflicting documentation, please specify below, in your clinical opinion, regarding the Depressive Disorder: ( ) Major depressive disorder, recurrent severe without psychotic features ( x ) Major Depressive Disorder, Recurrent, Severe, with Psychotic Features ( ) Other: Please Specify Physician's Response(s): It should be WITH psychotic features Thank you Zo Evans Principal Diagnosis: "that condition established after study, to be chiefly responsible for occasioning the admission of the patient to the hospital for care." Co-Existing Principal Diagnosis: "when two or more diagnoses equally meet the criteria for principal diagnosis as determined by the circumstances of admission, diagnostic work up, and/or therapy provided, and the Alphabetic Index, Tabular List, or another coding guideline does not provide sequencing direction, any one of the diagnoses may be sequenced first." "When the physician has documented what appears to be a current diagnosis in the body of the record, but has not included the diagnosis in the final diagnostic statement, the physician should be asked whether the diagnosis should be added." (Source Coding Clinic 2 QTR90. p3-4) ISAIAH
== END 2023-05-07 15:55 | disposition home or self-care (01) | DRG 885 ==
LOC: ED 16:42 → 3S 22:54 → ED 23:23